=== PATIENT | female | born 1990 | race Caucasian/White ===

== ENCOUNTER → 2017-01-10 | Outpatient (CLI) | payer MEDICAID ==
[~2017-01-10] MED LIST: ACET-2321 PO; AMOX500T2 PO; BUTA1CAP51 PO; HYDR-4246 PO; IBUP-1547 PO; MONT10TA15 PO; ONDA4TAB7 PO; PREN-92 PO
--- NOTE | 2017-01-11 10:44 | DI ---
Indication: ITS.REASON: M25.562 PAIN IN LEFT KNEE Procedure: KNEE LEFT 3 VIEWS: Encounter: Initial Comparison: 03/20/2015 Technique: Three views of the left knee were obtained Findings: Bony mineralization is normal. The visualized osseous structures appear intact with no acute fracture identified. The joint spaces are maintained. No significant joint effusion. No focal radiographically apparent soft tissue swelling. No radiopaque foreign body. Impression: Normal left knee radiographs. .
== END ==
LOC: IMA 17:09
PROVIDERS: ATTEND Family Medicine
DX: M25.562 Pain in left knee (principal)

== ENCOUNTER → 2017-01-31 | Outpatient (CLI) | payer MEDICAID ==
--- NOTE | 2017-01-31 12:47 | DI ---
Indication: ITS.REASON: M25.562 PAIN IN LEFT KNEE PROCEDURE: MRI KNEE LEFT W/O CONTRAST: Encounter: Initial Comparison: Left knee radiographs dated January 10, 2017 and left knee MRI dated May 31, 2011 Technique: Multiplanar multisequence MR imaging of the left knee was performed without contrast. Findings: The lateral meniscus is normal. The medial meniscus is normal. The ACL and PCL are intact. The MCL and lateral collateral ligament complex are intact. The extensor mechanism is grossly intact. Bone marrow signal intensity is normal. No fracture. The cartilage of the medial, lateral and patellofemoral compartments is intact. No joint effusion or Hernandez's cyst. Muscular signal intensity is normal. Impression: Negative exam. No acute abnormality seen. .
== END ==
LOC: IMA 09:15
PROVIDERS: ATTEND Family Medicine Sports Medicine
DX: M25.562 Pain in left knee (principal)

== ENCOUNTER → 2017-03-01 | Outpatient (CLI) | payer MEDICAID ==
--- NOTE | 2017-03-01 15:23 | DI ---
Indication: ITS.REASON: R60.9 EDEMA PROCEDURE: STERNUM: Encounter: Initial Comparison: None Findings/ Impression: No displaced sternal fracture identified. No obvious pectus deformity. .
== END ==
LOC: IMA 14:43
PROVIDERS: ATTEND Family Medicine
DX: R60.9 Edema, unspecified (principal)